=== PATIENT | male | born 1945 | race Caucasian/White ===

== ENCOUNTER 2019-01-03 13:20 | Outpatient (CLI) | payer MEDICARE ==
--- NOTE | 2019-01-03 14:04 | Diagnostic Imaging Report ---
Indication: TIA. Transient disorientation. Dizziness TECHNIQUE: Duplex extracranial carotid and vertebral artery sonography performed with color flow imaging and waveform analysis. COMPARISON: None FINDINGS: Right carotid: Grayscale and color-flow imaging demonstrating no hemodynamically significant stenosis within the common carotid artery, extracranial internal carotid artery. Peak systolic and end-diastolic velocities are within normal limits. ICA/CCA ratios are within normal limits. Peak systolic velocity 62 cm/s. ICA/CCA ratio 1.1. Mild heterogeneous plaques are demonstrated consistent with atherosclerotic disease. Left carotid: Grayscale and color-flow imaging demonstrating no hemodynamically significant stenosis within the common carotid artery, extracranial internal carotid artery. Peak systolic velocity 80 cm/s. ICA/CCA ratio 1.0.. Mild heterogeneous plaques are demonstrated consistent with atherosclerotic disease. Vertebral arteries: Antegrade flow demonstrated within both vertebral arteries. IMPRESSION: No hemodynamically significant extracranial carotid artery stenosis identified. Mild atherosclerotic disease Antegrade flow within both vertebral arteries. This report utilizes carotid stenosis grading criteria based on the meeting of Society of radiologists in ultrasound consensus conference, May 2002.
== END 2019-01-03 15:20 | disposition home or self-care (01) ==
LOC: VAS 13:20
DX: R41.0 Disorientation, unspecified (principal); R42 Dizziness and giddiness; I70.90 Unspecified atherosclerosis
CPT/HCPCS: 93880